=== PATIENT | female | born 1940 | race Hispanic/Latino ===

== ENCOUNTER 2019-09-05 06:20 | Observation (INO) | payer MEDICARE, OTHER ==
[~2019-09-05] VITALS: Ht 148.6 cm; Wt 67.6 kg
[2019-09-05] MEDS ORDERED: ASPIRIN 81 MG CHEW TAB PO ONE (06:45)
[2019-09-05] MEDS ORDERED: NITROGLYCERIN 2% OINT 1 GM PKT TOP ONE (06:45)
[2019-09-05] MEDS ORDERED: ACETAMINOPHEN 325 MG TAB PO ONE (06:45)
[2019-09-05] MEDS ORDERED: FAMOTIDINE 20 MG/2 ML VIAL IV ONE ×2 (06:45→07:15)
[2019-09-05] MEDS ORDERED: ONDANSETRON HCL INJ 2MG/ML 2ML 2 MG/ML VIAL IV STA (06:45)
[2019-09-05] MEDS ORDERED: ONDANSETRON HCL INJ 2MG/ML 2ML 2 MG/ML VIAL ONE (07:12)
[2019-09-05] MEDS ORDERED: NITROGLYCERIN 2% OINT 1 GM PKT ONE (07:13)
[2019-09-05] MEDS ORDERED: ACETAMINOPHEN 325 MG TAB ONE (07:13)
[2019-09-05] MEDS ORDERED: ASPIRIN 325 MG TAB ONE (07:14)
--- NOTE | 2019-09-05 07:17 | Emergency Department Note ---
History of Present Illnes History of Present Illness Chief Complaint: Chest Pain History of Present Illness This is a 79 year old female hx htn, GERD, c/o chest discomfort for 3 h ours, no hx of CAD. PCP dr Dowling . Historian: Patient Hot Pond Operator Required: No Radiation: Reports non-radiation Severity: moderate Onset quality: gradual Progression: waxing and waning Relieving factors: none Exacerbating factors: none Associated symptoms: Reports denies other symptoms, Reports nausea/vomiting Treatments prior to arrival: other (PPI) Past Medical/Family History Physician Review I have reviewed the patient's past medical and family history. Any updates have been documented here. Past Medical History Recent Fever: No Clinical Suspicion of Infectio: No New/Unexplained Change in Ment: No Past Medical History: Hypertension, GERD Past Surgical History: Cholecysctectomy, Hysterectomy Social History Smoking Cessation: Unknown if ever smoked Alcohol Use: None TB Exposure/Symptoms: No Physically hurt or threatened: No Family History Family history of heart diseas: No Other Any Pre-Existing Lines (PICC,: No Review of Systems Review of Systems Constitutional: Reports no symptoms EENTM: Reports no symptoms Cardiovascular: Reports as per HPI, Reports chest pain Respiratory: Reports no symptoms Gastrointestinal: Reports as per HPI, Reports abdominal pain, Reports nausea Genitourinary: Reports no symptoms Musculoskeletal: Reports no symptoms Integumentary: Reports no symptoms Neurological: Reports no symptoms Psychological: Reports no symptoms Endocrine: Reports no symptoms Hematological/Lymphatic: Reports no symptoms Physical Exam Related Data Allergies: Coded Allergies: Iodinated Contrast Media (Verified Allergy, Unknown, 09/05/19) Penicillins (Verified Allergy, Unknown, 09/05/19) adhesive tape (Verified Allergy, Unknown, 09/05/19) morphine (Verified Allergy, Unknown, 09/05/19) Physical Exam CONSTITUTIONAL Constitutional: Present well-developed, Present well-nourished HENT HENT: Present normocephalic, Present atraumatic, Present oropharynx clear/moist, Present nose normal HENT L/R: Present left ext ear normal, Present right ext ear normal EYES Eyes: Reports PERRL, Reports conjunctivae normal NECK Neck: Present ROM normal PULMONARY Pulmonary: Present effort normal, Present breath sounds normal CARDIOVASCULAR Cardiovascular: Present regular rhythm, Present heart sounds normal, Present capillary refill normal, Present normal rate GASTROINTESTINAL Abdominal: Present soft, Present nontender, Present bowel sounds normal GENITOURINARY Genitourinary: Present exam deferred SKIN Skin: Present warm, Present dry MUSCULOSKELETAL Musculoskeletal: Present ROM normal NEUROLOGICAL Neurological: Present alert, Present oriented x 3, Present no gross motor or sensory deficits PSYCHOLOGICAL Psychological: Present mood/affect normal, Present judgement normal Procedures 12 Lead ECG Interpretation ECG Interpretation : ECG: ECG 1 Hot Pond Operator: Interpreted by ED physician Date: Sep 05, 2019 Time: 06:32 Prior ECG tracings: reviewed Rhythm: sinus rhythm Conduction: right bundle branch block ST segments normal: Yes ST segment flattening: III, aVF Clinical Impression: abnormal ECG Critical Care Time Time ED Physician saw patient: 06:40 Critcal care necessary due to: cardiac failure, other (acute coronary syndrome) Critcal care time spent by me: develop tx plan w patient/surrogate, evaluation patient response to tx, examination of patient, obtaining hx from patient/surro gate, order/review laboratory studies, order/review radiographic studies, pulse oximetry, re-evaluation of patient condition Assessment & Plan Medical Decision Making MDM high risk CAD Reassessment Reassessment time: 08:15 Reassessment c/o nausea, HR 54 Assessment & Plan Final Impression: (1) Acute coronary syndrome (2) Nausea (3) Hypertensive urgency Depart Disposition: ADMITTED Medications in the ED Lovenox 70 mg CQ once Aspirin 325 mg ONCE ONCE PO ; Start 09/05/19 at 06:45; Stop 09/05/19 at 06:46; Status UNV Famotidine 20 mg ONCE ONCE IV ; Start 09/05/19 at 06:45; Stop 09/05/19 at 06:46; Status UNV Nitroglycerin 1 gm ONCE ONCE TOP ; Start 09/05/19 at 06:45; Stop 09/05/19 at 06:48; Status DC Acetaminophen 650 mg ONCE ONCE PO ; Start 09/05/19 at 06:45; Stop 09/05/19 at 06:46; Status UNV Ondansetron HCl 4 mg NOW STAT IV ; Start 09/05/19 at 06:45; Stop 09/05/19 at 06:46; Status UNV Physician Attestation Provider Attestation PCP Dr Dowling. Case discussed with Dr Troncoso, he will call subway conductor ELIOT ROBISON MD Sep 05, 2019 07:17
--- NOTE | 2019-09-05 07:42 | Diagnostic Imaging Report ---
Examination: Single AP view of the chest. COMPARISON: None. INDICATION: Chest pain IMPRESSION: 1. Lines and Tubes: None 2. Lungs are grossly clear. No consolidation or effusion. 3. Cardiomediastinal silhouette is normal. Pulmonary vasculature is normal. 4. No acute bony abnormalities. Signed by: Dr. Joshua Barillas M.D. on 09/05/2019 7:38 AM
[2019-09-05] MEDS ORDERED: METOPROLOL TARTRATE 25 MG TAB PO SCH (08:30)
[2019-09-05] MEDS ORDERED: ONDANSETRON HCL INJ 2MG/ML 2ML 2 MG/ML VIAL IV PRN (08:30)
[2019-09-05] MEDS ORDERED: FAMOTIDINE 20 MG TAB PO SCH (08:30)
[2019-09-05] MEDS: ASPIRIN 325 MG TAB EC PO SCH (08:41)
[2019-09-05] MEDS ORDERED: PROMETHAZINE 12.5MG/ NACL 0.9% 12.5 MG/50 ML BAG IV PRN (08:45)
--- NOTE | 2019-09-05 09:46 | NUR ---
[facility] contacted for transport to [facility] room 211. ETA 35-45 min, patient updated.
[2019-09-05] MEDS ORDERED: SERTRALINE HCL25 MG PO (10:27)
[2019-09-05] MEDS ORDERED: LEVOCETIRIZINE D5 MG PO (10:27)
[2019-09-05] MEDS ORDERED: CANDESARTAN-HC1 EAC2 PO (10:27)
[2019-09-05] MEDS ORDERED: ATORVASTATIN CA10 MG PO (10:27)
[2019-09-05] MEDS ORDERED: AMLODIPINE BESYL5 MG PO (10:27)
[2019-09-05] MEDS ORDERED: PANTOPRAZOLE SO40 MG PO (10:27)
[2019-09-05] MEDS ORDERED: MECLIZINE HCL12.5 MG PO (10:27)
[2019-09-05] MEDS: LISINOPRIL 10 MG TAB PO SCH (10:28)
[2019-09-05 11:00] VITALS: BP 162/83
--- NOTE | 2019-09-05 11:11 | NUR ---
Received patient via stretcher from free standing ER. AAOX4 to time, person, place, situation. Respirations even and unlabored. Denies chest pain. Oriented patient to room. Instructed to use call light for assistance. Voiced understanding.
[2019-09-05 11:30] VITALS: BP 162/83
[2019-09-05] MEDS ORDERED: NITROGLYCERIN 2% OINT 1 GM PKT TOP SCH (12:00)
[2019-09-05] MEDS ORDERED: MELATONIN3 MG PO (12:09)
[2019-09-05 12:11] LABS: CREATINE KINASE 88 IU/L (29-168)
[2019-09-05] MEDS ORDERED: POTASSIUM CHLORIDE 20 MEQ TAB CR PO ONE (12:30)
[2019-09-05] MEDS: FAMOTIDINE 20 MG TAB PO SCH (15:28)
[2019-09-05 17:56] LABS: CREATINE KINASE 86 IU/L (29-168)
--- NOTE | 2019-09-05 19:30 | NUR ---
Report given to oncoming nurse of patient's status. Resting in bed. No s/s of acute distress noted. Side rails upx2, call light within reach.
--- NOTE | 2019-09-05 19:48 | NUR ---
pt received. no ss of distress noted. no co pain at time. tele in place. will cont to follow poc. call holman within reach.
[2019-09-05 20:01] VITALS: BP 161/62
--- NOTE | 2019-09-05 20:43 | NUR ---
spoke to garrett nonprofit fundraiser regarding home medication. new orders received.
--- NOTE | 2019-09-05 20:47 | NUR ---
spoke to dr erendira alvarez regarding bp medication. new orders received.
[2019-09-05 21:00] VITALS: BP 161/62
[2019-09-05] MEDS ORDERED: NON-FORMULARY MEDICATION (Sertraline Hcl 25 MG) PO SCH (21:00)
[2019-09-05] MEDS ORDERED: SERTRALINE HCL 50 MG TAB PO SCH (21:00)
[2019-09-05] MEDS ORDERED: SIMVASTATIN 40 MG TAB PO SCH (21:00)
--- NOTE | 2019-09-06 | NUR ---
blood collected and sent to lab. pt tolerated well. no distress noted. reinforced npo status at time. pt verbalized understanding. call holman within reach.
[2019-09-06 00:09] VITALS: BP 135/57
[2019-09-06 00:44] LABS: CHOL/HDL RATIO 2.6 (3.0-3.6)
[2019-09-06 00:59] LABS: CREATINE KINASE MB 1.6 ng/mL (0-5.0)
--- NOTE | 2019-09-06 04:37 | NUR ---
pt resting at time. no ss of distress noted. call holman within reach.
[2019-09-06 05:20] VITALS: BP 135/52
--- NOTE | 2019-09-06 06:20 | NUR ---
ASSESSMENT: Spiritual distress Pt requested Derrick Engineer visit. Pt anxious about procedure. Pt states she is "claustrophobic" and a "type A." Pt states she knows she shouldn't worry but does anyway. Pt identifies as Faith who attends "Mass every day." Pt states she has two sons and has been a for 7 years. Intervention: Provided hospitality and unhurried empathic listening. Provided prayer and facilitated storytelling. Outcome: Pt expressed appreciation for visit and support. Provided information on how to reach merchandising execution associate, if needed. No need to follow at this time. BENNY CAMPA Derrick Engineer Spiritual Care Department O: [phone]
--- NOTE | 2019-09-06 07:00 | NUR ---
CHANGE OF SHIFT REPORT RECEIVED FROM PM NURSE. PT AWAKE, ALERT, IN STABLE CONDITION. NPO STATUS ACTIVE FOR STRESS TEST TODAY.
[2019-09-06] MEDS: FAMOTIDINE 20 MG TAB PO SCH ×2 (07:30→16:28)
[2019-09-06 08:07] VITALS: BP 131/53
--- NOTE | 2019-09-06 08:30 | Consultation ---
DATE OF CONSULTATION: Cardiology Consult Dictating for Dr. Guzmán. HISTORY OF PRESENT ILLNESS: She is 79-year-old female with a primary history of hypertension, hyperlipidemia, GERD and anxiety admitted complaining of midsternal chest pain radiating to her back accompanied with shortness of breath, dizziness, nausea with 5/10 intensity that worsens with exertion. PAST MEDICAL HISTORY: Hypertension, hyperlipidemia, anxiety, asthma, hiatal hernia, GERD, and thyroid nodules. PAST SURGICAL HISTORY: Right knee surgery, hysterectomy and back surgery. FAMILY HISTORY: Includes colon cancer in mother, father of heart attack, son with coronary artery disease. SOCIAL HISTORY: The patient is a nonsmoker and does not drink any alcohol. HOME MEDICATIONS: Include amlodipine 5 mg daily, atorvastatin 10 mg daily, candesartan/hydrochlorothiazide one tablet p.o. daily, meclizine 12.5 mg p.o. daily, melatonin 3 mg one tablet daily, Pantoprazole 40 mg daily, and sertraline 25 mg one tablet daily. PHYSICAL EXAMINATION: VITAL SIGNS: Temperature of 97.7, pulse 57, respiratory rate is 18, pulse oximetry 100% on room air, blood pressure is 162/83. GENERAL: The patient is well developed, well nourished, in no acute distress. HEENT: Head is normocephalic, atraumatic. Eyes; pupils equal, round, and reactive to light and accommodation. Sclerae are nonicteric. Ears are normal. Oral cavity and mucosa moist. Throat is clear. NECK: Supple. Full range of motion. No cervical lymphadenopathy. SKIN: Warm and dry. No suspicious lesions although there is some discoloration lower extremity. CARDIOVASCULAR: Regular rate and rhythm. S1 and S2 are normal. No murmurs heard on auscultation. LUNGS: Clear to auscultation bilaterally. ABDOMEN: Soft, nontender, nondistended. Bowel sounds are present. EXTREMITIES: No edema. No cyanosis. NEUROLOGIC: Nonfocal. Motor strength of the upper and lower extremities are normal. Sensory exam is intact. IMPRESSION AND PLAN: The patient admitted with atypical chest pain. 1. Monitor vital signs/hemodynamics and placed on continuous telemetry monitoring. 2. Obtain echocardiogram to evaluate valves and LV function. 3. Lexiscan stress test to exclude ischemia. 4. Trend troponin. Aspirin, p.r.n. oxygen and nitrates and further recommendation will follow according to the patient's clinical course. We will continue to evaluate/assess for any patient needs of any cardiac intervention. Thank you for this consultation. Dictated by Lilli May, SULEMA MD SANDI Gonzalez/LITA /[id number]
[2019-09-06 08:34] VITALS: BP 131/53
[2019-09-06] MEDS ORDERED: AMLODIPINE BESYLATE 5 MG TAB PO SCH ×2 (09:00→21:00)
[2019-09-06] MEDS: ASPIRIN 325 MG TAB EC PO SCH ×3 (09:00→16:34)
[2019-09-06] MEDS: LISINOPRIL 10 MG TAB PO SCH (09:00)
[2019-09-06] MEDS ORDERED: REGADENOSON 0.4 MG/5 ML SYR IV ONE (11:07)
[2019-09-06 16:24] VITALS: BP 146/62
--- NOTE | 2019-09-06 21:26 | Operative Report ---
DATE OF PROCEDURE: 09/06/2019 SURGEON: Lonny Guzmán MD PROCEDURE: Lexiscan nuclear stress test. INDICATION: Chest pain. TECHNIQUE: The patient was given 11 mCi of Myoview. Resting images were obtained in the horizontal long axis, vertical long axis, and short axis. The patient was then hooked up to the EKG machine. Lexiscan was infused over 15 seconds. Immediately after Lexiscan infusion, the patient was given 33 mCi of Myoview. 30 minutes after completion of Lexiscan infusion, stress images were obtained in the horizontal long axis, vertical long axis, and short axis. RESULTS: 1. The resting EKG demonstrated normal sinus rhythm with incomplete right bundle branch block. 2. There was some T-wave inversions during Lexiscan infusion in the anterior leads. 3. There was normal perfusion to all segments of the myocardium in both stress and rest. 4. There was normal left ventricular size and function with an ejection fraction of 70%. CONCLUSION: Normal Lexiscan nuclear stress test with no evidence of ischemia. Lonny Guzmán MD [facility]/MODL /[id number]
--- NOTE | 2019-09-07 10:53 | Discharge Summary ---
ADMISSION DIAGNOSES: Chest pain, hypertension, hyperlipidemia, anxiety, obesity with a BMI of 30.6. DISCHARGE DIAGNOSES: Chest pain, hypertension, hyperlipidemia, anxiety, obesity with a BMI of 30.6, rule out acute coronary syndrome. MEDICAL HISTORY: Hypertension, hyperlipidemia, anxiety, asthma, hiatal hernia, GERD, thyroid nodules. SURGICAL HISTORY: Right knee surgery, back surgery, hysterectomy. FAMILY HISTORY: The patient's mother had cancer. The patient's father had a heart attack. SOCIAL HISTORY: Noncontributory. HOSPITAL COURSE: A 79-year-old female admits with complaints of substernal chest pain that radiated to her back. She had associated shortness of breath, dizziness, and nausea. Symptoms worsened with activity. On admission, troponins were negative x3. Chest x-ray was negative. Lipids were within normal limits. Cardiology was consulted and recommended a stress test. The stress test was negative. The patient will discharge home on chronic medications per Cardiology recommendation. The patient understands discharge instructions and agrees to plan. She will follow up with primary care and Cardiology in 1 to 2 weeks. Vital signs stable, the patient is afebrile. Dictated by Jasmin Dickens NP MD DOC Houser/LITA /[id number]
== END 2019-09-06 17:50 | disposition home or self-care (01) ==
LOC: FSED 06:20 → INTOOBSV 08:24 → ERHOLD 08:24 → MED/SURG2 10:57
PROVIDERS: ADMIT Internal Medicine; ATTEND Internal Medicine
DX: I24.9 Acute ischemic heart disease, unspecified (principal); I10 Essential (primary) hypertension; E78.5 Hyperlipidemia, unspecified; F41.9 Anxiety disorder, unspecified; E66.9 Obesity, unspecified; Z68.30 Body mass index [BMI] 30.0-30.9, adult; K21.9 Gastro-esophageal reflux disease without esophagitis; Z11.59 Encounter for screening for other viral diseases; J45.909 Unspecified asthma, uncomplicated; E04.1 Nontoxic single thyroid nodule
CPT/HCPCS: 36415 ×2; 71045; 78452; 80053; 80061; 82550 ×2; 82553 ×2; 84484 ×2; 85025; 87635; 93005; 93017; 93306; 99284; A9502; G0378 ×2; J2405; J2785

== ENCOUNTER 2019-09-13 18:45 | Emergency (ER) | payer MEDICARE ==
[~2019-09-13] VITALS: Ht 148.6 cm; Wt 67.6 kg
[~2019-09-13 18:45] MED LIST: AMLODIPINE BESYL5 MG PO; ATORVASTATIN CA10 MG PO; CANDESARTAN-HC1 EAC2 PO; LEVOCETIRIZINE D5 MG PO; MECLIZINE HCL12.5 MG PO; MELATONIN3 MG PO; PANTOPRAZOLE SO40 MG PO; SERTRALINE HCL25 MG PO
--- NOTE | 2019-09-13 19:37 | Emergency Department Note ---
History of Present Illnes History of Present Illness Chief Complaint: COVID PUI History of Present Illness This is a 79 year old female presents to the ED for URI since Tuesday. Seen in the ED and PCP and was given Rx Azithromycin and prednisone . Historian: Patient Arrival Mode: Car Onset (how long ago): day(s) Severity: mild Onset quality: gradual Duration (how long): day(s) Progression: unchanged Chronicity: new Context: Reports recent illness Relieving factors: none Exacerbating factors: none Associated symptoms: Reports cough, Reports fever/chills Treatments prior to arrival: none Previous service: medications given Past Medical/Family History Physician Review I have reviewed the patient's past medical and family history. Any updates have been documented here. Past Medical History Recent Fever: No Clinical Suspicion of Infectio: Yes New/Unexplained Change in Ment: No Past Medical History: Hypertension, GERD Other Medical History: ARTHRITIS, BARRETS ESOPHAGUS Past Surgical History: Cholecysctectomy, Hysterectomy Other Surgery: L-5 DISC, FOOT SURG, HERNIA SURGERY, PARTIAL HYSTERECTOMY, TONSILLECTOMY Social History Smoking Cessation: Never Smoker Alcohol Use: None Any Illegal Drug Use: No Review of Systems Review of Systems Constitutional: Reports malaise EENTM: Reports no symptoms Cardiovascular: Reports no symptoms Respiratory: Reports cough Gastrointestinal: Reports no symptoms Genitourinary: Reports no symptoms Musculoskeletal: Reports no symptoms Integumentary: Reports no symptoms Neurological: Reports no symptoms Psychological: Reports no symptoms Endocrine: Reports no symptoms Hematological/Lymphatic: Reports no symptoms Physical Exam Related Data Allergies: Coded Allergies: Iodinated Contrast Media (Verified Allergy, Unknown, 09/05/19) Penicillins (Verified Allergy, Unknown, 09/14/19) "MAKES HER HANDS ITCH." No symptoms of anaphylaxis; adhesive tape (Verified Allergy, Unknown, 09/05/19) morphine (Verified Allergy, Unknown, 09/05/19) Triage Vital Signs Vital Signs Date Time Temp Pulse Resp B/P (MAP) Pulse Ox O2 Delivery O2 Flow Rate FiO2 09/13/19 19:36 99.1 83 20 161/83 95 Room Air Vital signs reviewed: Yes Physical Exam CONSTITUTIONAL Constitutional: Present well-developed, Present well-nourished HENT HENT: Present normocephalic, Present atraumatic, Present oropharynx clear/moist, Present nose normal HENT L/R: Present left ext ear normal, Present right ext ear normal EYES Eyes: Reports PERRL, Reports conjunctivae normal NECK Neck: Present ROM normal PULMONARY Pulmonary: Present effort normal, Present breath sounds normal CARDIOVASCULAR Cardiovascular: Present regular rhythm, Present heart sounds normal, Present capillary refill normal, Present normal rate GASTROINTESTINAL Abdominal: Present soft, Present nontender, Present bowel sounds normal GENITOURINARY Genitourinary: Present exam deferred SKIN Skin: Present warm, Present dry MUSCULOSKELETAL Musculoskeletal: Present ROM normal NEUROLOGICAL Neurological: Present alert, Present oriented x 3, Present no gross motor or sensory deficits PSYCHOLOGICAL Psychological: Present mood/affect normal, Present judgement normal Results Imaging Imaging results reviewed: Yes Impressions [place] [address] Patient Name: STEPHANIE CASTELLANOS MR #: [id number] : 1940 Age/Sex: 79/F Req #: [id number] Adm Physician: Ordered by: ORIANA STARK DO Report #: [id number] Location: ER Room/Bed: Procedure: [id number] DX/CHEST SINGLE (PORTABLE) Exam Date: 09/13/19 Exam Time: 2009 REPORT STATUS: Signed EXAMINATION: CHEST SINGLE (PORTABLE) INDICATION: Suspected COVID. ^SOB, PUI ^[id number] ^2009 COMPARISON: . FINDINGS: TUBES and LINES: None. LUNGS: Interval development of mild patchy density in the right lung base concerning for developing pneumonia.. PLEURA: No pleural effusion or pneumothorax. HEART AND MEDIASTINUM: The cardiomediastinal silhouette is unremarkable. BONES AND SOFT TISSUES: No acute osseous lesion. Soft tissues are unremarkable. UPPER ABDOMEN: No free air under the diaphragm. IMPRESSION: Interval development of mild patchy density in the right lung base concerning for developing pneumonia. Signed by: Dr. Catherine Calle M.D. on 09/13/2019 8:37 PM Dictated By: CHAPARRO CALLE MD, MD 36 Transcribed By: MIKKI on 09/13/192036 COPY TO: ORIANA STARK DO~ Assessment & Plan Medical Decision Making MDM 79 yof with fever, myalgias. Exam normal. VSS . Diff Dx : COVID-19 infection, viral syndrome, gastritis, and URI. VSS . Abx changed from azithromycin to levaquin Assessment & Plan Final Impression: (1) Upper respiratory infection Home Meds Reported Medications Cefuroxime Axetil (CEFUROXIME) 500 Mg Tablet, 500 MG PO BID for 10 Days 09/16/19 Oseltamivir Phosphate (TAMIFLU) 75 Mg Cap, 75 MG PO BID for 7 Days, CAP 09/16/19 Prednisone (PREDNISONE) 20 Mg Tab, 40 MG PO DAILY for 10 Days, #30 TAB 09/16/19 Melatonin (MELATONIN) 3 Mg Tablet, 3 MG PO HS, TAB 09/05/19 Levocetirizine Dihydrochloride (LEVOCETIRIZINE DIHYDROCHLORIDE) 5 Mg Tablet, 5 MG PO DAILY PRN for ALLERGY 09/05/19 Meclizine Hcl (MECLIZINE HCL) 12.5 Mg Tablet, 12.5 MG PO DAILY PRN for DIZZINESS 09/05/19 Pantoprazole Sodium* (PROTONIX) 40 Mg Tablet.dr, 40 MG PO DAILY 09/05/19 Sertraline Hcl (SERTRALINE HCL) 25 Mg Tablet, 25 MG PO HS 09/05/19 Candesartan/Hydrochlorothiazid (Candesartan-Hctz 32-25 mg Tab) 1 Each Tablet, 1 TAB PO DAILY 09/05/19 Amlodipine Besylate (AMLODIPINE BESYLATE) 5 Mg Tablet, 5 MG PO DAILY 09/05/19 Atorvastatin Calcium (ATORVASTATIN CALCIUM) 10 Mg Tablet, 10 MG PO HS 09/05/19 ORIANA STARK DO Sep 13, 2019 19:36
--- NOTE | 2019-09-13 20:40 | Diagnostic Imaging Report ---
EXAMINATION: CHEST SINGLE (PORTABLE) INDICATION: Suspected COVID. ^SOB, PUI ^[id number] ^2009 COMPARISON: . FINDINGS: TUBES and LINES: None. LUNGS: Interval development of mild patchy density in the right lung base concerning for developing pneumonia.. PLEURA: No pleural effusion or pneumothorax. HEART AND MEDIASTINUM: The cardiomediastinal silhouette is unremarkable. BONES AND SOFT TISSUES: No acute osseous lesion. Soft tissues are unremarkable. UPPER ABDOMEN: No free air under the diaphragm. IMPRESSION: Interval development of mild patchy density in the right lung base concerning for developing pneumonia. Signed by: Dr. Catherine Calle M.D. on 09/13/2019 8:37 PM
== END 2019-09-14 00:01 | disposition home or self-care (01) ==
LOC: ER 18:45
DX: J06.9 Acute upper respiratory infection, unspecified (principal); R50.9 Fever, unspecified; R05 Cough; I10 Essential (primary) hypertension; K21.9 Gastro-esophageal reflux disease without esophagitis
CPT/HCPCS: 71045; 99283

== ENCOUNTER 2019-09-14 15:12 | Inpatient (IN) | payer MEDICARE, OTHER ==
[~2019-09-14] VITALS: Ht 148.6 cm; Wt 65.8 kg
--- NOTE | 2019-09-14 16:38 | Emergency Department Note ---
History of Present Illnes History of Present Illness Chief Complaint: Abdominal Complaints History of Present Illness This is a 79 year old female with a history of hypertension and hyperlipidemia who presents with a one-week history of cough, intermittent low- grade fever, runny nose, and body aches. Patient had a telemedicine visit with her doctor on 09/11/2019 and was prescribed a Z-Brijesh and prednisone 10 mg for 5 days. Patient was not improving, and she had a temp of 100.5, so she presented to [facility] yesterday for further evaluation. She had a chest x- ray which showed a right lower lobe infiltrate, possible pneumonia, white blood cell count of 11.6, electrolytes show sodium 132 potassium 3.4 chloride of 98 glucose 119. Patient had a negative Covid test on 09/05/2019. Patient was discharged on Levaquin 750 mg which she started today. Patient states she began vomiting after discharge yesterday, and is unable to keep any fluids or food down. She says she's vomited 3 times this morning, mostly consisting of whatever contents she's been eating such as crackers, and has had 6 episodes of loose, watery stool. She denies any blood or mucus in the stool and her bowel movements are not painful. She denies any abdominal pain. She denies any chest pain or shortness of breath. She is having generalized weakness. Historian: Patient Arrival Mode: Car Business Assistant Required: No Onset (how long ago): week(s) (1) Location: generalized Quality: weak, dry heaving Radiation: Reports non-radiation Severity: moderate Onset quality: sudden Duration (how long): day(s) (N/V/D started late yesterday, and has persisted today. Pt is unable to keep any fluids down. ) Timing of current episode: constant Progression: worsening Chronicity: new Context: Reports recent illness (Pt admitted with hypertensive urgency and cp and she had a right upper quadrant without positive for 1 which is a very is); Denies recent travel, Denies trauma/injury Relieving factors: none Exacerbating factors: none (a new about pneumonia) Associated symptoms: Reports cough, Reports fever/chills, Reports headaches, Reports loss of appetite, Reports malaise, Reports nausea/vomiting, Reports weakness (as); Denies shortness of breath Treatments prior to arrival: none (long as placement) Risk factors: age, pneumonia Past Medical/Family History Physician Review I have reviewed the patient's past medical and family history. Any updates have been documented here. Past Medical History Recent Fever: Yes Clinical Suspicion of Infectio: Yes New/Unexplained Change in Ment: No Past Medical History: Hypertension, GERD Other Medical History: ARTHRITIS, BARRETS ESOPHAGUS Past Surgical History: Cholecysctectomy, Hysterectomy Other Surgery: L-5 DISC, FOOT SURG, HERNIA SURGERY, PARTIAL HYSTERECTOMY, TONSILLECTOMY Social History Smoking Cessation: Never Smoker Alcohol Use: None Any Illegal Drug Use: No TB Exposure/Symptoms: No Physically hurt or threatened: No Family History Family history of heart diseas: No Other Any Pre-Existing Lines (PICC,: No Is patient up to date on immun: No Review of Systems Review of Systems Constitutional: Reports fever, Reports malaise, Reports weakness EENTM: Reports no symptoms Cardiovascular: Denies chest pain, Denies palpitations Respiratory: Reports chest congestion, Reports cough; Denies pain on inspiration, Denies pain with cough, Denies dyspnea, Denies dyspnea on exertion Gastrointestinal: Reports diarrhea (6 episodes today), Reports nausea, Reports vomiting (3 today, consisting of anything she attempted to eat or drink.); Denies abdominal pain Genitourinary: Denies dysuria, Denies frequency Musculoskeletal: Denies back pain, Denies neck pain Integumentary: Reports change in color; Denies rash Neurological: Reports headache (mild), Reports weakness Psychological: Denies anxiety, Denies depressed Endocrine: Denies excessive sweating, Denies increased urination Hematological/Lymphatic: Denies anemia, Denies blood clots Review of other systems: All other systems negative Physical Exam Related Data Allergies: Coded Allergies: Iodinated Contrast Media (Verified Allergy, Unknown, 09/05/19) Penicillins (Verified Allergy, Unknown, 09/14/19) "MAKES HER HANDS ITCH." No symptoms of anaphylaxis; adhesive tape (Verified Allergy, Unknown, 09/05/19) morphine (Verified Allergy, Unknown, 09/05/19) Vital signs reviewed: Yes Physical Exam CONSTITUTIONAL Constitutional: Present well-developed, Present well-nourished, Present ill appearing (appears weak) HENT HENT: Present normocephalic, Present atraumatic, Present oropharynx clear/moist, Present nose normal; Absent nasal congestion HENT L/R: Present left TM normal, Present right TM normal, Present left ext ear normal, Present right ext ear normal EYES Eyes: Reports PERRL, Reports conjunctivae normal NECK Neck: Present ROM normal, Present cervical adenopathy PULMONARY Pulmonary: Present effort normal, Present other (decreased breath sounds bilaterally, with intermittent crackles); Absent respiratory distress CARDIOVASCULAR Cardiovascular: Present regular rhythm, Present heart sounds normal, Present capillary refill normal, Present normal rate, Present murmur (soft 2/6 systolic murmur) GASTROINTESTINAL Abdominal: Present soft, Present nontender, Present bowel sounds normal; Absent tender GENITOURINARY SKIN Skin: Present warm, Present dry; Absent erythema, Absent rash MUSCULOSKELETAL Musculoskeletal: Present ROM normal; Absent edema, Absent swelling NEUROLOGICAL Neurological: Present alert PSYCHOLOGICAL Psychological: Present mood/affect normal, Present judgement normal Results Laboratory Laboratory CBC - normal; CMP - Na = 131, K+ = 2.8, CL = 94; Cardiacs - negative; Influenza B - positive; Lab results reviewed: Yes Imaging Imaging results reviewed: Yes Impressions [place] [address] Patient Name: STEPHANIE CASTELLANOS MR #: [id number] : 1940 Age/Sex: 79/F Req #: [id number] Adm Physician: Ordered by: ORIANA STARK DO Report #: [id number] Location: ER Room/Bed: Procedure: [id number] DX/CHEST SINGLE (PORTABLE) Exam Date: 09/13/19 Exam Time: 2009 REPORT STATUS: Signed EXAMINATION: CHEST SINGLE (PORTABLE) INDICATION: Suspected COVID. ^SOB, PUI ^[id number] ^2009 COMPARISON: . FINDINGS: TUBES and LINES: None. LUNGS: Interval development of mild patchy density in the right lung base concerning for developing pneumonia.. PLEURA: No pleural effusion or pneumothorax. HEART AND MEDIASTINUM: The cardiomediastinal silhouette is unremarkable. BONES AND SOFT TISSUES: No acute osseous lesion. Soft tissues are unremarkable. UPPER ABDOMEN: No free air under the diaphragm. IMPRESSION: Interval development of mild patchy density in the right lung base concerning for developing pneumonia. Signed by: Dr. Catherine Umaña M.D. on 09/13/2019 8:37 PM Dictated By: CHAPARRO UMAÑA MD, MD 36 Transcribed By: MIKKI on 09/13/192036 Diagnostics Tests Diagnostic test(s) reviewed: Yes Procedures 12 Lead ECG Interpretation ECG Interpretation : ECG: ECG 1 Date: Sep 14, 2019 Time: 18:03 Prior ECG tracings: reviewed Rhythm: sinus rhythm Rate: normal BPM: 63 QRS axis: indeterminate Conduction: right bundle branch block ST segments normal: Yes T waves normal: Yes Clinical Impression: abnormal ECG Assessment & Plan Medical Decision Making MDM - Discussed with patient, that her labs reveal a low potassium of 2.8 chloride at 94 sodium 131, likely related to her persistent vomiting and diarrhea for the last 24 hours. Due to the low potassium, along with her nausea, the potassium cannot be repleted quickly enough in the emergency room. Magnesium was also replaced and level rechecked in the morning. - She also has influenza B and will be started on Tamiflu - Rocephin and Zithromax were started for possible community-acquired pneumonia. A COVID test has been ordered, due to hospital admission. - Nausea vomiting has subsided with the Zofran and IV fluids - Patient was agreeable to the plan and also agreeable to admission. 19:50 - case discussed with Dr. Bradford, who is agreeable to admission. Orders have been entered, and waiting on bed assignment. Assessment & Plan Final Impression: (1) Pneumonia (2) Influenza B (3) Hypokalemia (4) Diarrhea (5) Hypertension (6) Weakness Depart Disposition: ADMITTED (to [facility]) Home Meds Reported Medications Melatonin (MELATONIN) 3 Mg Tablet, 3 MG PO HS, TAB 09/05/19 Levocetirizine Dihydrochloride (LEVOCETIRIZINE DIHYDROCHLORIDE) 5 Mg Tablet, 5 MG PO DAILY PRN for ALLERGY 09/05/19 Meclizine Hcl (MECLIZINE HCL) 12.5 Mg Tablet, 12.5 MG PO DAILY PRN for DIZZINESS 09/05/19 Pantoprazole Sodium* (PROTONIX) 40 Mg Tablet.dr, 40 MG PO DAILY 09/05/19 Sertraline Hcl (SERTRALINE HCL) 25 Mg Tablet, 25 MG PO HS 09/05/19 Candesartan/Hydrochlorothiazid (Candesartan-Hctz 32-25 mg Tab) 1 Each Tablet, 1 TAB PO DAILY 09/05/19 Amlodipine Besylate (AMLODIPINE BESYLATE) 5 Mg Tablet, 5 MG PO DAILY 09/05/19 Atorvastatin Calcium (ATORVASTATIN CALCIUM) 10 Mg Tablet, 10 MG PO HS 09/05/19 VIOLETA PERERA MD Sep 14, 2019 16:38
[2019-09-14] MEDS ORDERED: ONDANSETRON HCL INJ 2MG/ML 2ML 2 MG/ML VIAL IV STA (16:41)
[2019-09-14] MEDS: SODIUM CHLORIDE 0.9% 1000ML 1,000 ML IV SCH ×2 (16:45→17:18)
[2019-09-14] MEDS ORDERED: SODIUM CHLORIDE 0.9% 1000ML 1,000 ML ONE (17:09)
[2019-09-14] MEDS ORDERED: ONDANSETRON HCL INJ 2MG/ML 2ML 2 MG/ML VIAL ONE (17:09)
[2019-09-14] MEDS ORDERED: POTASSIUM CHLORIDE 20MEQ/100ML 100 ML IV ONE (18:00)
[2019-09-14] MEDS ORDERED: MAGNESIUM SULFATE 2GM/50ML 50 ML IV ONE ×2 (18:00→18:33)
[2019-09-14] MEDS ORDERED: AZITHROMYCIN 500MG/NS 250 ML 250 ML IV ONE (18:15)
[2019-09-14] MEDS ORDERED: CEFTRIAXONE SOD 1 GM/NS 50 ML 50 ML IV ONE (18:15)
[2019-09-14] MEDS ORDERED: POTASSIUM CHLORIDE 20MEQ/100ML 100 ML ONE (18:34)
[2019-09-14] MEDS ORDERED: ONDANSETRON HCL INJ 2MG/ML 2ML 2 MG/ML VIAL IV PRN (20:00)
[2019-09-14] MEDS ORDERED: CEFTRIAXONE SOD 1 GRAM/0.9% SOD CHL 50ML BAG IV SCH (20:00)
[2019-09-14] MEDS ORDERED: AZITHROMYCIN 500MG/SOD CHL 0.9% 250ML BAG IV SCH (20:00)
[2019-09-14] MEDS ORDERED: SODIUM CHLORIDE FLUSH 10 ML SYR INJ PRN (20:00)
[2019-09-14] MEDS: FAMOTIDINE 20 MG/2 ML VIAL IV SCH (20:35)
[2019-09-14] MEDS ORDERED: FAMOTIDINE 20 MG/2 ML VIAL IV ONE (20:41)
--- NOTE | 2019-09-14 21:05 | NUR ---
CALLED [facility] FOR TRANSPORT TO [facility]. ETA 45MINS
--- NOTE | 2019-09-14 22:16 | NUR ---
ADMIT ROOM CHANGED TO 215 PER VIOLETTA AOS
--- NOTE | 2019-09-14 22:30 | NUR ---
REPORT TO NS FOR RM 215
--- NOTE | 2019-09-14 22:33 | NUR ---
Kobe with [facility] advised his unit is 18 min. away.
[2019-09-14] MEDS ORDERED: ACETAMINOPHEN 325 MG TAB PO PRN (23:00)
[2019-09-14 23:30] VITALS: BP 147/59
[2019-09-14] MEDS ORDERED: SODIUM CHLORIDE 0.9% 250ML 250 ML ONE (23:56)
[2019-09-14] MEDS: OSELTAMIVIR PHOSPHATE 75 MG CAP PO SCH (23:57)
[2019-09-15] VITALS (7 sets, daily range): BP systolic 136–151; BP diastolic 54–63
--- NOTE | 2019-09-15 00:30 | NUR ---
Patient received via stretcher from ER. AAO x 4. Patient had no complaints of pain. Respirations even and non-labored. Admission history obtained. Initial physical assessment performed. Safety measures implemented. Patient instructed to call for assistance when needed. Call light within reach.
[2019-09-15 06:13] LABS: BASOPHILS % 0.5 % (0.0-1.0); HEMATOCRIT 33.2 % (34.2-44.1); LYMPHOCYTES # (AUTO) 1.2 (1.0-3.2); LYMPHOCYTES % 31.4 % (18.0-39.1); MEAN CORPUSCULAR HEMOGLOBIN 28.6 pg (28-32); MEAN CORPUSCULAR HGB CONC 33.1 g/dL (31-35); MEAN CORPUSCULAR VOLUME 86.5 fL (81-99); MONOCYTES # (AUTO) 0.7 (0.2-0.8); MONOCYTES % 17.6 % (4.4-11.3); PLATELET COUNT 184 x10e3/uL (140-360); RED BLOOD COUNT 3.84 x10e6/uL (3.6-5.1); RED CELL DISTRIBUTION WIDTH 12.3 % (11.7-14.4)
[2019-09-15] MEDS: CEFTRIAXONE SOD 1 GM/NS 50 ML 50 ML IV SCH (06:30)
[2019-09-15 06:35] LABS: ALANINE AMINOTRANSFERASE 17 IU/L (0-55); ALBUMIN 2.9 g/dL (3.5-5.0); ALBUMIN/GLOBULIN RATIO 0.9 (0.8-2.0); ALKALINE PHOSPHATASE 74 IU/L (40-150); BLOOD UREA NITROGEN 8 mg/dL (7-26); BUN/CREATININE RATIO 12 (6-25); CALCIUM 8.2 mg/dL (8.4-10.2); CARBON DIOXIDE 26 mmol/L (22-29); CHLORIDE 108 mmol/L (98-107); CREATININE, SERUM 0.68 mg/dL (0.57-1.11); EST GLOMERULAR FILTRATION RATE > 60 ML/MIN (60-); GLUCOSE 94 mg/dL (74-118); MAGNESIUM 2.2 MG/DL (1.3-2.1); SODIUM 141 mmol/L (136-145)
[2019-09-15] MEDS ORDERED: AZITHROMYCIN 500MG/NS 250 ML 250 ML IV SCH ×2 (08:00→21:00)
[2019-09-15] MEDS: SODIUM CHLORIDE 0.9% 1000ML 1,000 ML IV SCH ×2 (09:40→09:59)
[2019-09-15] MEDS: OSELTAMIVIR PHOSPHATE 75 MG CAP PO SCH (09:59)
[2019-09-15] MEDS: AMLODIPINE BESYLATE 5 MG TAB PO SCH (09:59)
[2019-09-15] MEDS: PANTOPRAZOLE SOD 40 MG TABEC PO SCH (09:59)
--- NOTE | 2019-09-15 12:43 | History and Physical ---
CHIEF COMPLAINT: The patient came in with nausea, vomiting, and diarrhea. HISTORY OF PRESENTING ILLNESS: This is Ms. Stephanie Whitney, who was in usual state of health until the patient started to have upper respiratory symptoms, had to be conference with her primary care physician and was started on azithromycin at that time and prednisone 10 mg for 5 days. The patient had no improving symptoms. Temperature remained elevated. The patient came into [facility] yesterday for further evaluation. The patient's x-ray showed pneumonia. The patient was started on Levaquin 750 mg, which going to have extreme amount of nausea and vomited 3 times and diarrhea, which is very loose and episodic with 6 to 7 episodes yesterday. The patient came in and was admitted to the hospital for lobar pneumonia. PAST MEDICAL HISTORY: History of Rojas esophagus, history of hypertension, history of reflux esophagitis. Last scoped by Dr. Oropeza about one and half years ago. PAST SURGICAL HISTORY: History of cholecystectomy and history of hysterectomy. Other surgical history includes hernia repair, partial hysterectomy, and tonsillectomy. SOCIAL HISTORY: No EtOH. No IV drug abuse. No history of TB exposure. No history of COVID exposure at this time. FAMILY HISTORY: Positive for heart disease. REVIEW OF SYSTEMS: Negative for chest pain. No shortness of breath. Positive for malaise. Positive for weakness. Positive for diarrhea. Positive for vomiting. No diplopia. No blurry vision. No neck pain. No hematemesis. No hematochezia either. Denies any anxiety. ALLERGIES: ALLERGIC TO CONTRAST MEDIA. ALLERGIC TO ADHESIVE. PHYSICAL EXAMINATION: GENERAL: The patient is alert and oriented x3, breathing very well. The patient is very pleasant. HEENT: Normocephalic and atraumatic. Pupils are reactive. CVS: S1 and S2 normal. Regular rate and rhythm. ABDOMEN: Soft, nontender, and nondistended. EXTREMITIES: No clubbing. No cyanosis. No edema. PULMONARY: Decreased air entry into the right side. Positive for some crackles and rhonchi on the right side. SKIN AND INTEGUMENTARY SYSTEM: Normal. PSYCHOLOGICAL: Alert and oriented x3 with no signs of anxiety. INITIAL LABORATORY VALUES: CBC was normal. CMP; sodium of 131, potassium of 2.8, chloride of 94. Cardiac enzymes are negative. Influenza B was positive. The patient also had coronavirus test done previously, which is negative. Current coronavirus is pending at this time. IMAGING STUDIES: Chest x-ray shows cardiomediastinal silhouette unremarkable. Right-sided lung base concerning of developing pneumonia. IMPRESSION: Community-acquired pneumonia, viral pneumonia, hypokalemia, and metabolic derangement. PLAN: Tamiflu. Start the patient on Rocephin and Zithromax. Echo testing is pending. IV hydration and replete the electrolytes for Rojas esophagus. We will start back on her pantoprazole and for blood pressure medicine, we will start back on her medications. We will continue to monitor the patient. The patient is stable at this time. Also, Lovenox for DVT prophylaxis instituted. Further recommendation per clinical course. MD LOUIE Vo/MODL /[id number]
--- NOTE | 2019-09-15 16:17 | NUR ---
Report called to receiving nurse. Patient is being transferred to room 185 due to being COVID-19 positive.
--- NOTE | 2019-09-15 16:38 | NUR ---
Dr. Grove notified about patients' positive COVID-19 result.
[2019-09-15] MEDS ORDERED: ENOXAPARIN 30 MG/0.3 ML SYR SC SCH (17:00)
--- NOTE | 2019-09-15 17:10 | NUR ---
Pt received form [facility] at this time. Pt is aox3 and able to verbalize needs. Denies any pain at this time. pt is on room air, breaths are even and unlabored.
[2019-09-15] MEDS ORDERED: SERTRALINE HCL 50 MG TAB PO SCH (21:00)
[2019-09-15] MEDS ORDERED: NON-FORMULARY MEDICATION (Sertraline Hcl 25 MG) PO SCH ×2 (21:00)
[2019-09-15] MEDS ORDERED: MELATONIN 3 MG TAB PO SCH (21:00)
[2019-09-15] MEDS ORDERED: ATORVASTATIN 10 MG TAB PO SCH (21:00)
[2019-09-16] VITALS: BP 140/58
[2019-09-16 04:00] VITALS: BP 133/58
[2019-09-16 05:38] LABS: BASOPHILS % 0.2 % (0.0-1.0); EOSINOPHILS % 0.4 % (0.0-6.0); HEMATOCRIT 34.3 % (34.2-44.1); HEMOGLOBIN 11.3 g/dL (12.0-16.0); LYMPHOCYTES # (AUTO) 1.4 (1.0-3.2); LYMPHOCYTES % 25.9 % (18.0-39.1); MEAN CORPUSCULAR HEMOGLOBIN 29.2 pg (28-32); MEAN CORPUSCULAR HGB CONC 32.9 g/dL (31-35); MEAN CORPUSCULAR VOLUME 88.6 fL (81-99); MONOCYTES # (AUTO) 0.5 (0.2-0.8); MONOCYTES % 9.7 % (4.4-11.3); NEUTROPHILS # (AUTO) 3.5 (2.1-6.9); NEUTROPHILS % 63.4 % (38.7-80.0); PLATELET COUNT 192 x10e3/uL (140-360); RED BLOOD COUNT 3.87 x10e6/uL (3.6-5.1); RED CELL DISTRIBUTION WIDTH 12.5 % (11.7-14.4)
[2019-09-16 06:03] LABS: ANION GAP 11.3 mmol/L (8-16); BLOOD UREA NITROGEN 9 mg/dL (7-26); BUN/CREATININE RATIO 14 (6-25); CARBON DIOXIDE 24 mmol/L (22-29); CHLORIDE 111 mmol/L (98-107); CREATININE, SERUM 0.66 mg/dL (0.57-1.11); EST GLOMERULAR FILTRATION RATE > 60 ML/MIN (60-); GLUCOSE 92 mg/dL (74-118); POTASSIUM 3.3 mmol/L (3.5-5.1); SODIUM 143 mmol/L (136-145)
[2019-09-16] MEDS: CEFTRIAXONE SOD 1 GM/NS 50 ML 50 ML IV SCH (06:30)
[2019-09-16] MEDS: SODIUM CHLORIDE 0.9% 1000ML 1,000 ML IV SCH (06:38)
--- NOTE | 2019-09-16 06:42 | NUR ---
Dr. Perfecto vivas, Potassium 3.3, ordered 40 meq Kdur x1. Pt no acute distress.
[2019-09-16] MEDS ORDERED: POTASSIUM CHLORIDE 20 MEQ TAB CR PO ONE (06:45)
--- NOTE | 2019-09-16 06:56 | Diagnostic Imaging Report ---
EXAMINATION: CHEST SINGLE (PORTABLE) INDICATION: ^pneumonia COMPARISON: 09/13/2019 FINDINGS: AP view TUBES and LINES: None. LUNGS: Slight interval increase in right lower lung airspace disease. The left lung remains grossly clear. PLEURA: No pleural effusion or pneumothorax. HEART AND MEDIASTINUM: The cardiomediastinal silhouette is unchanged. BONES AND SOFT TISSUES: No acute osseous lesion. Soft tissues are unremarkable. UPPER ABDOMEN: No free air under the diaphragm. IMPRESSION: Slight interval increase in right lung airspace disease. The left lung remains grossly clear. Signed by: Дмитрий Somers MD on 09/16/2019 6:53 AM
[2019-09-16 08:00] VITALS: BP 133/58
[2019-09-16 08:14] VITALS: BP 135/53
[2019-09-16] MEDS: FAMOTIDINE 20 MG/2 ML VIAL IV SCH (09:02)
[2019-09-16] MEDS: AMLODIPINE BESYLATE 5 MG TAB PO SCH (09:02)
[2019-09-16] MEDS: OSELTAMIVIR PHOSPHATE 75 MG CAP PO SCH (09:03)
[2019-09-16] MEDS: PANTOPRAZOLE SOD 40 MG TABEC PO SCH (09:03)
--- NOTE | 2019-09-16 10:22 | Progress Note ---
DATE: SUBJECTIVE: Ms. Stephanie Whitney is a 79-year-old unfortunate female with flu, COVID-19 and community-acquired pneumonia. The patient is currently feeling better. She is walking around with 96% on room air. OBJECTIVE: VITAL SIGNS: Temperature although is 99.3, T-max is 99.9, pulse of 62, respirations of 18, blood pressure is 133/58. GENERAL: The patient does complain of some reflux at this time. HEENT: Normocephalic and atraumatic, in good spirits. CVS: S1 and S2 normal. Regular rhythm. LUNGS: Decreased air entry in the lung bases, positive for some rhonchi. ABDOMEN: Tender at the epigastrium. EXTREMITIES: No clubbing, no cyanosis, no edema. LABORATORY VALUES: White count is 5.49, hemoglobin of 11.3, hematocrit is stable. Sodium 143, potassium 3.3, chloride of 111. SEROLOGY: Coronavirus detected and flu virus is positive too. IMAGING STUDIES: From yesterday showed interval increase in right lung airspace disease. ASSESSMENT: Ms. Stephanie Whitney with community-acquired pneumonia, viral pneumonia with flu and COVID-19. Metabolic derangement of hypokalemia. PLAN: Continue Tamiflu. Continue Rocephin. Continue on Zithromax. Continue on 6 mg of prednisone. The patient has Rojas's esophagus. We will start back on the pantoprazole and also replace electrolytes. Further recommendation and clinical course. Lovenox high dose is also implemented. Further recommendation per clinical course. We will continue to monitor the patient and consults have been ordered for Pulmonary and Infectious Disease. MD LOUIE Vo/MODL /[id number]
[2019-09-16] MEDS ORDERED: SOD CHL 0.45%/POT CHL 20MEQ 1,000 ML IV SCH (11:45)
[2019-09-16 12:00] VITALS: BP 141/63
--- NOTE | 2019-09-16 14:45 | NUR ---
PAST MEDICAL HISTORY: History of Rojas esophagus, history of hypertension, history of reflux esophagitis. Last scoped by Dr. Oropeza about one and half years ago. PAST SURGICAL HISTORY: History of cholecystectomy and history of hysterectomy. Other surgical history includes hernia repair, partial hysterectomy, and tonsillectomy. SOCIAL HISTORY: No EtOH. No IV drug abuse. No history of TB exposure. No history of COVID exposure at this time. FAMILY HISTORY: Positive for heart disease. REVIEW OF SYSTEMS: Negative for chest pain. No shortness of breath. Positive for malaise. Positive for weakness. Positive for diarrhea. Positive for vomiting. No diplopia. No blurry vision. No neck pain. No hematemesis. No hematochezia either. Denies any anxiety. ALLERGIES: ALLERGIC TO CONTRAST MEDIA. ALLERGIC TO ADHESIVE.
[2019-09-16 16:00] VITALS: BP 138/60
[2019-09-16] MEDS ORDERED: TAMIFLU75 MG PO (16:01)
[2019-09-16] MEDS ORDERED: PREDNISONE20 MG PO (16:01)
[2019-09-16] MEDS ORDERED: CEFUROXIME500 MG PO (16:04)
--- NOTE | 2019-09-16 17:12 | NUR ---
Pt discharged home at this time. Pt verbalized understanding of all discharge instructions and follow up appoints. 0 s/s of acute distress noted at time of discharge. Pt was discharged with three prescriptions.
--- NOTE | 2019-09-16 18:42 | Consultation ---
DATE OF CONSULTATION: Pulmonary Critical Care Consultation CHIEF COMPLAINT: Diarrhea, malaise, fever, and positive COVID test. HISTORY OF PRESENT ILLNESS: The patient is a 79-year-old woman. She has a history of Rojas's esophagus and hypertension. She had a recent cardiac stress test that was negative. The patient reports feeling ill for the past 7 to 8 days. She noted some diarrhea. She also had some fever on several occasions. She does not complain of dyspnea or cough. Her chest x-ray showed findings consistent with pneumonia. She also had a positive test for influenza as well as COVID. PAST SURGICAL HISTORY: 1. Status post hysterectomy. 2. Status post cholecystectomy. 3. Status post tonsillectomy. PAST MEDICAL HISTORY: 1. Rojas's esophagus. 2. Recent cardiac workup with a negative stress test. SOCIAL HISTORY: The patient denies any exposure to TB. She is not a smoker. She has never been a smoker. She is not a drinker. FAMILY HISTORY: Noncontributory. ALLERGIES: THE PATIENT IS ALLERGIC TO PENICILLIN AND MORPHINE WELL CONTRAST DYE. REVIEW OF SYSTEMS: She had some fevers. She has no headache. She has no neck pain. She does not complain of chest pain. She does not have dyspnea. She does have some diarrhea. She has no abdominal pain. She has no nausea or vomiting. She has no leg edema. PHYSICAL EXAMINATION: VITAL SIGNS: The blood pressure is 135/53, saturation is 96%. The respiratory rate is 18. HEENT: Shows no facial swelling or erythema. CARDIAC: Reveals regular rate and rhythm with a normal S1 and S2. LUNGS: Auscultation of lungs reveals rhonchorous breath sounds bilaterally. No wheezing. ABDOMEN: Soft, nontender. There is no rebound or guarding. EXTREMITIES: Shows no leg edema or calf tenderness. There is no cyanosis or clubbing. SKIN: Shows no rashes. NEUROLOGICAL: Shows no focal abnormalities. LABORATORY DATA: White blood cell count is 5.5, hemoglobin is 11.3. Platelet count is 192. BUN to creatinine ratio is 9 to 0.66 and the potassium is 3.3. RADIOGRAPHIC DATA: Chest x-ray shows right-sided airspace disease consistent with pneumonia. IMPRESSION: 1. Viral pneumonia with coronavirus disease-19 and influenza. 2. Rojas's esophagus. 3. Hypokalemia. 4. Hypertension. PLAN: 1. Continue current antibiotics as well as Tamiflu. 2. Symptomatic treatment for diarrhea. 3. Monitor electrolytes and CBC closely. 4. Oxygen as needed. MD KELVIN Solo/LITA /[id number]
--- NOTE | 2019-09-16 22:38 | History and Physical ---
CHIEF COMPLAINT: Shortness of breath. HISTORY OF PRESENT ILLNESS: Ms. Stephanie Whitney is a very pleasant 79-year-old, who was admitted with some nausea and vomiting. The patient has been sick for 10 days and the patient comes in with the above. The patient was admitted with IV fluids. She is currently doing much better. The patient, who does have underlying history of asthma, she is short of breath. She states she took some prednisone because she was feeling sick for the last week. She also received Z-Brijesh. The patient is currently feeling much better, alert, feeling much better as mentioned above. PHYSICAL EXAMINATION: GENERAL: She is currently alert and oriented, does not seem in acute distress. VITAL SIGNS: Stable, currently afebrile. HEENT: She is not icteric. NECK: Supple. CHEST: Clear bilateral. HEART: S1 and S2. No murmurs. ABDOMEN: Soft. Bowel sounds present. EXTREMITIES: No skin rash. IMPRESSION: 1. COVID-19. The patient has been sick for more than 7 days. Clinically, seems to be stable. 2. She was also history of influenza diagnosed recently. 3. Asthma. From Infectious Disease point of view, the patient will be discharged home. Tamiflu for 7 days. Prednisone 40 mg p.o. daily for 10 days. Aspirin 325 mg p.o. daily. Ceftin 250 mg p.o. b.i.d., since I am concerned about superimposed bacterial pneumonia, but clinically as mentioned above, the patient is doing very well. I answered all her questions. She was concerned about her son, who told her that he has been sick for more than a week, has been infectious for more than 10 days. Her son is doing very well now . I also informed her that if she needs to continue with wearing mask, doing social distance and cleaning services. She can continue that for 2 more weeks to be on the safe side. I answered all the questions, left some prescriptions, the patient can be discharged as mentioned above. MD DAVID Chowdhury/LITA /[id number]
== END 2019-09-16 17:12 | disposition home or self-care (01) | DRG 177 ==
LOC: FSED 16:54 → ERHOLD 19:55 → MED/SURG2 23:24 → IMCU 09-15 16:54
PROVIDERS: ADMIT Family Medicine; ATTEND Family Medicine
DX: U07.1 COVID-19 (principal); J12.89 Other viral pneumonia; J45.909 Unspecified asthma, uncomplicated; Z90.49 Acquired absence of other specified parts of digestive tract; Z90.710 Acquired absence of both cervix and uterus; Z88.5 Allergy status to narcotic agent; Z88.0 Allergy status to penicillin; K22.70 Barrett's esophagus without dysplasia; E87.6 Hypokalemia; E87.8 Other disorders of electrolyte and fluid balance, not elsewhere classified
CPT/HCPCS: 36415; 71045; 80048; 80053; 81003; 83735; 85025; 87400; 87635; 93005; 96361; 96374; 96375; 99284; J0456; J0696; J1650; J2405; J3475; J3480; J7030; J7050

== ENCOUNTER 2020-07-11 18:18 | Emergency (ER) | payer MEDICARE ==
[~2020-07-11] VITALS: Ht 149.9 cm; Wt 63.5 kg
[~2020-07-11 18:18] MED LIST changes: -DIPHENHYDRAMINE HCL 25 MG CAP ONE; -DIPHENHYDRAMINE HCL INJ 50 MG/ML VIAL ONE; -FAMOTIDINE 20 MG/2 ML VIAL IV ONE; -FENTANYL CITRATE/PF 100MCG/2 ML INJ ONE; -HEPARIN SOD (PORCINE) 1000 UNIT/ML 30ML ONE; -HEPARIN SOD/SOD CHLORIDE 2,000 ML ONE; -IOPAMIDOL 370 MG/ML 200 ML INFUS..BTL INJ ONE; -LIDOCAINE HCL 2% LOCAL 20 ML VIAL ONE; -METHYLPREDNISOLONE SOD SUCC 125 MG/2ML VIAL ONE; -MIDAZOLAM HCL 2 MG/2 ML VIAL ONE; -NITROGLYCERIN/D5W 200 MCG/ML 250 ML ONE; -SODIUM CHLORIDE 0.9% 1000ML 1,000 ML ONE; -VERAPAMIL HCL 2.5 MG/ML 2 ML VIAL ONE
[2020-07-11 21:41] VITALS: BP 147/62
== END 2020-07-11 21:00 | disposition home or self-care (01) ==
LOC: ER 18:26
DX: I97.630 Postprocedural hematoma of a circulatory system organ or structure following a cardiac catheterization (principal); I10 Essential (primary) hypertension; E78.5 Hyperlipidemia, unspecified; F41.9 Anxiety disorder, unspecified; K21.9 Gastro-esophageal reflux disease without esophagitis
CPT/HCPCS: 99283

== ENCOUNTER → 2020-07-11 | Day surgery (SDC) | payer MEDICARE ==
[2020-07-09 11:12] LABS: BASOPHILS % 0.4 % (0.0-1.0); EOSINOPHILS # (AUTO) 0.1 (0.0-0.4); EOSINOPHILS % 1.2 % (0.0-6.0); HEMATOCRIT 36.4 % (34.2-44.1); HEMOGLOBIN 11.8 g/dL (12.0-16.0); LYMPHOCYTES # (AUTO) 1.9 (1.0-3.2); MEAN CORPUSCULAR HEMOGLOBIN 28.4 pg (28-32); MEAN CORPUSCULAR HGB CONC 32.4 g/dL (31-35); MEAN CORPUSCULAR VOLUME 87.7 fL (81-99); MONOCYTES # (AUTO) 0.5 (0.2-0.8); MONOCYTES % 6.8 % (4.4-11.3); NEUTROPHILS # (AUTO) 4.5 (2.1-6.9); NEUTROPHILS % 64.5 % (38.7-80.0); PLATELET COUNT 207 x10e3/uL (140-360); RED BLOOD COUNT 4.15 x10e6/uL (3.6-5.1); RED CELL DISTRIBUTION WIDTH 12.5 % (11.7-14.4)
[2020-07-09 11:32] LABS: INR 0.84; PROTHROMBIN TIME 12.1 seconds (11.9-14.5)
[2020-07-09 11:33] LABS: ALANINE AMINOTRANSFERASE 20 IU/L (0-55); ALBUMIN/GLOBULIN RATIO 1.3 (0.8-2.0); ALKALINE PHOSPHATASE 83 IU/L (40-150); ANION GAP 13.8 mmol/L (8-16); BLOOD UREA NITROGEN 15 mg/dL (7-26); BUN/CREATININE RATIO 21 (6-25); CALCIUM 8.7 mg/dL (8.4-10.2); CARBON DIOXIDE 27 mmol/L (22-29); CHLORIDE 106 mmol/L (98-107); CREATININE, SERUM 0.72 mg/dL (0.57-1.11); EST GLOMERULAR FILTRATION RATE > 60 ML/MIN (60-); GLUCOSE 93 mg/dL (74-118); POTASSIUM 3.8 mmol/L (3.5-5.1); SODIUM 143 mmol/L (136-145)
[2020-07-11] VITALS (16 sets, daily range): BP systolic 108–164; BP diastolic 60–88
[~2020-07-11] VITALS: Ht 149.9 cm; Wt 63.5 kg
[~2020-07-11] MED LIST changes: +CARAFATE1 GM PO; +CEFUROXIME500 MG PO; +DIPHENHYDRAMINE HCL 25 MG CAP ONE; +DIPHENHYDRAMINE HCL INJ 50 MG/ML VIAL ONE; +DYMISTA NASAL S23 GM INH; +FAMOTIDINE 20 MG/2 ML VIAL IV ONE; +FENTANYL CITRATE/PF 100MCG/2 ML INJ ONE; +FISH OIL 1,0001 EAC2 PO; +HEPARIN SOD (PORCINE) 1000 UNIT/ML 30ML ONE; +HEPARIN SOD/SOD CHLORIDE 2,000 ML ONE; +IOPAMIDOL 370 MG/ML 200 ML INFUS..BTL INJ ONE; +LIDOCAINE HCL 2% LOCAL 20 ML VIAL ONE; +METHYLPREDNISOLONE SOD SUCC 125 MG/2ML VIAL ONE; +MIDAZOLAM HCL 2 MG/2 ML VIAL ONE; +NITROGLYCERIN/D5W 200 MCG/ML 250 ML ONE; +PREDNISONE20 MG PO; +PRESERVISION T1 EACH PO; +PROAIR HFA INH8.5 GM INH; +SODIUM CHLORIDE 0.9% 1000ML 1,000 ML ONE; +TAMIFLU75 MG PO; +VERAPAMIL HCL 2.5 MG/ML 2 ML VIAL ONE; +VITAMIN B-121000 MC1 PO; +VITAMIN C1000 MG PO; +VITAMIN D3 PO; +VITAMIN E400 UNI1 PO
== END | disposition home or self-care (01) ==
LOC: CATH LAB 06:26
PROVIDERS: ATTEND Internal Medicine Cardiovascular Disease
DX: I25.10 Atherosclerotic heart disease of native coronary artery without angina pectoris (principal); R94.39 Abnormal result of other cardiovascular function study; Z91.041 Radiographic dye allergy status; Z01.812 Encounter for preprocedural laboratory examination; Z20.822 Contact with and (suspected) exposure to COVID-19
CPT/HCPCS: 36415; 76937; 80053; 85025; 85610; 93458; C1887; C1894; J1644; J2001; J2250; J2930; J3010; J7030; Q9967; U0002; 99152; J1200

== ENCOUNTER 2021-02-21 10:42 | Emergency (ER) | payer MEDICARE ==
[~2021-02-21] VITALS: Ht 147.3 cm; Wt 67.4 kg
[2021-02-21] MEDS ORDERED: SODIUM CHLORIDE 0.9% 1000ML 1,000 ML IV STA (11:02)
[2021-02-21] MEDS ORDERED: MAALOX MAXIMUM355 ML PO (11:13)
[2021-02-21] MEDS ORDERED: ONDANSETRON ODT4 MG PO (11:13)
[2021-02-21] MEDS ORDERED: PROTONIX20 MG PO (11:13)
[2021-02-21] MEDS ORDERED: KETOROLAC TROMETHAMINE 30 MG/ML VIAL IV ONE (11:15)
[2021-02-21] MEDS ORDERED: ONDANSETRON HCL INJ 2MG/ML 2ML 2 MG/ML VIAL IV ONE (11:15)
[2021-02-21] MEDS ORDERED: FAMOTIDINE 20 MG/2 ML VIAL IV ONE ×2 (11:15→11:27)
[2021-02-21] MEDS ORDERED: ONDANSETRON HCL INJ 2MG/ML 2ML 2 MG/ML VIAL ONE (11:26)
[2021-02-21] MEDS ORDERED: SODIUM CHLORIDE 0.9% 1000ML 1,000 ML ONE (11:27)
[2021-02-21] MEDS ORDERED: KETOROLAC TROMETHAMINE 30 MG/ML VIAL ONE (11:27)
== END 2021-02-21 12:31 | disposition home or self-care (01) ==
LOC: FSED 10:47
DX: R11.0 Nausea (principal); K52.9 Noninfective gastroenteritis and colitis, unspecified; I10 Essential (primary) hypertension; E78.5 Hyperlipidemia, unspecified; K21.9 Gastro-esophageal reflux disease without esophagitis; F41.9 Anxiety disorder, unspecified; Z87.19 Personal history of other diseases of the digestive system
CPT/HCPCS: 70450; 74176; 80053; 81003; 85025; 96374; 96375; 99284; J1885; J2405; J7030

== ENCOUNTER 2021-02-24 20:00 | Emergency (ER) | payer MEDICARE ==
[~2021-02-24] VITALS: Ht 147.3 cm; Wt 67.1 kg
[~2021-02-24 20:00] MED LIST changes: +MAALOX MAXIMUM355 ML PO; +ONDANSETRON ODT4 MG PO; +PROTONIX20 MG PO
[2021-02-24] MEDS ORDERED: SODIUM CHLORIDE 0.9% 1000ML 1,000 ML IV SCH (22:00)
[2021-02-24] MEDS ORDERED: SODIUM CHLORIDE 0.9% 1000ML 1,000 ML ONE (22:03)
== END 2021-02-24 23:54 | disposition home or self-care (01) ==
LOC: FSED 21:15
DX: R11.0 Nausea (principal); K52.9 Noninfective gastroenteritis and colitis, unspecified; R53.1 Weakness; I10 Essential (primary) hypertension; F41.9 Anxiety disorder, unspecified
CPT/HCPCS: 80053; 81003; 85025; 99283; J7030

== ENCOUNTER 2021-10-14 14:55 | Emergency (ER) | payer MEDICARE ==
[~2021-10-14] VITALS: Ht 147.3 cm; Wt 63.5 kg
[~2021-10-14 14:55] MED LIST changes: +DICLOFENAC SOD100 GM TOP; +SODIUM CHLORIDE FLUSH 10 ML SYR IV PRN; +TRAZODONE HCL50 MG PO; +VALSARTAN-HCTZ1 EAC2 PO
[2021-10-14] MEDS ORDERED: ASPIRIN 325 MG TAB PO ONE (16:15)
[2021-10-14 16:28] LABS: BASOPHILS % 0.3 % (0.0-1.0); EOSINOPHILS % 0.3 % (0.0-6.0); HEMATOCRIT 39.2 % (34.2-44.1); HEMOGLOBIN 12.7 g/dL (12.0-16.0); LYMPHOCYTES # (AUTO) 1.5 (1.0-3.2); MEAN CORPUSCULAR HEMOGLOBIN 29.4 pg (28-32); MEAN CORPUSCULAR HGB CONC 32.4 g/dL (31-35); MEAN CORPUSCULAR VOLUME 90.7 fL (81-99); MONOCYTES # (AUTO) 0.6 (0.2-0.8); MONOCYTES % 5.1 % (4.4-11.3); NEUTROPHILS # (AUTO) 9.4 (2.1-6.9); NEUTROPHILS % 80.9 % (38.7-80.0); PLATELET COUNT 239 x10e3/uL (140-360); RED BLOOD COUNT 4.32 x10e6/uL (3.6-5.1); RED CELL DISTRIBUTION WIDTH 13.1 % (11.7-14.4)
[2021-10-14 16:42] LABS: INR 0.83; PROTHROMBIN TIME 12.2 seconds (11.9-14.5)
[2021-10-14 16:43] LABS: PARTIAL THROMBOPLASTIN TIME 31.1 seconds (23.8-35.5)
[2021-10-14 16:49] LABS: ALANINE AMINOTRANSFERASE 31 IU/L (0-55); ALBUMIN 3.8 g/dL (3.5-5.0); ALBUMIN/GLOBULIN RATIO 1.1 (0.8-2.0); ALKALINE PHOSPHATASE 80 IU/L (40-150); ANION GAP 13.3 mmol/L (8-16); BLOOD UREA NITROGEN 16 mg/dL (7-26); BUN/CREATININE RATIO 21 (6-25); CALCIUM 8.7 mg/dL (8.4-10.2); CARBON DIOXIDE 28 mmol/L (22-29); CHLORIDE 102 mmol/L (98-107); CREATININE, SERUM 0.78 mg/dL (0.57-1.11); GLUCOSE 103 mg/dL (74-118); LIPASE 13 U/L (8-78); POTASSIUM 3.3 mmol/L (3.5-5.1); SODIUM 140 mmol/L (136-145)
== END 2021-10-14 19:49 | disposition home or self-care (01) ==
LOC: ER 16:13 → MERGE 16:13 → ER 19:49
DX: R07.89 Other chest pain (principal); I10 Essential (primary) hypertension; K21.9 Gastro-esophageal reflux disease without esophagitis; R94.31 Abnormal electrocardiogram [ECG] [EKG]
CPT/HCPCS: 36415; 71045; 80053; 83690; 84484; 85025; 85610; 85730; 93005; 99284

== ENCOUNTER 2023-10-28 08:12 | Emergency (ER) | payer MEDICARE ==
[~2023-10-28] VITALS: Ht 147.3 cm; Wt 61.9 kg
[~2023-10-28 08:12] MED LIST changes: -SODIUM CHLORIDE FLUSH 10 ML SYR IV PRN
[2023-10-28 08:50] VITALS: TEMP 98.2
[2023-10-28] MEDS ORDERED: DICYCLOMINE HCL10 MG PO (09:09)
[2023-10-28] MEDS ORDERED: COQ1050 MG (09:09)
[2023-10-28] MEDS ORDERED: METOPROLOL SUCC25 MG PO (09:09)
[2023-10-28] MEDS: SODIUM CHLORIDE 0.9% 500ML 500 ML IV STA (11:16)
[2023-10-28 13:11] VITALS: PULSE 64; RESP 13; O2SAT 98
== END 2023-10-28 13:26 | disposition home or self-care (01) ==
LOC: FSED 08:24
DX: R42 Dizziness and giddiness (principal); I10 Essential (primary) hypertension; E78.5 Hyperlipidemia, unspecified; K21.9 Gastro-esophageal reflux disease without esophagitis; F41.9 Anxiety disorder, unspecified; F32.A Depression, unspecified; R94.31 Abnormal electrocardiogram [ECG] [EKG]
CPT/HCPCS: 70450; 71046; 80048; 80076; 81003; 82553; 83880; 84484; 85025; 93005; 99284; J7040

== ENCOUNTER 2024-10-23 16:21 | Emergency (ER) | payer MEDICARE ==
[~2024-10-23] VITALS: Ht 147.3 cm; Wt 63.5 kg
[~2024-10-23 16:21] MED LIST changes: +COQ1050 MG; +DICYCLOMINE HCL10 MG PO; +METOPROLOL SUCC25 MG PO
[2024-10-23 16:25] VITALS: TEMP 97.9
[2024-10-23 16:53] LABS: BASOPHILS % 0.4 % (0.0-1.0); EOSINOPHILS % 0.9 % (0.0-6.0); LYMPHOCYTES % 20.0 % (18.0-39.1); MONOCYTES % 6.1 % (4.4-11.3); NEUTROPHILS % 72.3 % (38.7-80.0); RED CELL DISTRIBUTION WIDTH 12.8 % (11.7-14.4)
[2024-10-23 17:05] LABS: INR 0.88
[2024-10-23 17:15] LABS: EST GLOMERULAR FILTRATION RATE 80.0 ML/MIN (>=60)
[2024-10-23 17:37] VITALS: PULSE 60; RESP 16; O2SAT 99
== END 2024-10-23 18:00 | disposition home or self-care (01) ==
LOC: ER 16:48
DX: I10 Essential (primary) hypertension (principal); H11.32 Conjunctival hemorrhage, left eye; R51.9 Headache, unspecified; I25.10 Atherosclerotic heart disease of native coronary artery without angina pectoris; E78.5 Hyperlipidemia, unspecified; K21.9 Gastro-esophageal reflux disease without esophagitis; F41.9 Anxiety disorder, unspecified; F32.A Depression, unspecified; R94.31 Abnormal electrocardiogram [ECG] [EKG]; Z95.810 Presence of automatic (implantable) cardiac defibrillator
CPT/HCPCS: 36415; 80053; 84484; 85025; 85610; 85730; 93005; 99283